=== PATIENT | female | born 1950 ===

== ENCOUNTER 2021-05-16 18:16 | Emergency (ER) | payer OTHER ==
[2021-05-16 18:56] LABS: BASOPHIL 0.5 % (0-2); EOSINOPHIL 0.3 % (0-7); LYMPHOCYTE 4.7 % (15-48); MCH 30.6 pg (25.0-31.0); MCV 87.3 fL (78.0-100.0); MONOCYTE 6.3 % (0-12); MPV 9.7 fL (6.0-9.5); NEUTROPHIL 87.7 % (41-80); NRBC 0; PLT 191 K/uL (150-400); RBC 4.58 M/uL (4.20-5.40); RDW 12.2 % (11.5-14.0); WBC 10.3 K/uL (4.0-10.5)
[2021-05-16 19:11] LABS: ALBUMIN 3.4 g/dL (3.4-5.0); BILIRUBIN - TOTAL 0.6 mg/dL (0.2-1.0); BUN/CREAT RATIO (CALC) 11.3 RATIO; CREATININE 0.71 mg/dL (0.51-0.95); GLOBULIN (CALCULATION) 4.2 g/dL; POTASSIUM 3.5 mmol/L (3.5-5.1); TOTAL PROTEIN 7.6 g/dL (6.4-8.2)
[2021-05-16 19:38] LABS: CORONAVIRUS 2019 SARS-COV-2 NEGATIVE (NEGATIVE); INFLUENZA A NAA NEGATIVE (NEGATIVE)
[2021-05-16 19:42] LABS: BILIRUBIN NEGATIVE (NEGATIVE); BLOOD NEGATIVE Ery/uL (NEGATIVE); CLARITY CLEAR (CLEAR); COLOR YELLOW (YELLOW); GLUCOSE (U) NORMAL (NORMAL); LEUKOCYTES 1+ Leu/uL (NEGATIVE); NITRITE NEGATIVE (NEGATIVE); PROTEIN NEGATIVE (NEGATIVE); SPECIFIC GRAVITY 1.015 (1.001-1.030)
[2021-05-16 19:46] LABS: AMORPHOUS URATES CRYSTALS TRACE; BACTERIA 2+; URINARY RBC RARE
[2021-05-16] MEDS ORDERED: MACROBID100 MG PO (19:52)
[2021-05-16] MEDS ORDERED: ONDANSETRON ODT4 MG PO (19:52)
[2021-05-16 20:02] LABS: LACTIC ACID 1.8 mmol/L (0.4-1.9)
== END 2021-05-16 20:35 | disposition home or self-care (01) ==
LOC: FER 18:16
PROVIDERS: Emergency Medicine
DX: R11.2 Nausea with vomiting, unspecified (principal); N39.0 Urinary tract infection, site not specified; Z88.0 Allergy status to penicillin; Z20.822 Contact with and (suspected) exposure to COVID-19
CPT/HCPCS: 36415; 71045; 80053; 81001; 83605; 83690; 84145; 84484; 85025; 87088; J2405; J7030; U0002